=== PATIENT | female | born 1995 | race Caucasian/White ===

== ENCOUNTER → 2020-08-13 16:43 | Outpatient (CLI) | payer OTHER, SELFPAY ==
[2020-08-13 13:55] VITALS: BMI 23.8
[2020-08-18 01:58] LABS: HPV Reflexed? NOT INDICATED
== END ==
PROVIDERS: Referring Provider Nurse Practitioner Women's Health; Visit Provider Nurse Practitioner Women's Health
DX: Z12.4 Encounter for screening for malignant neoplasm of cervix (principal)
CPT/HCPCS: 88175; G0145